=== PATIENT | female | born 1965 | race Caucasian/White ===

== ENCOUNTER → 2020-10-12 | Emergency (ER) | payer BC ==
[~2020-10-12] VITALS: Ht 160 cm; Wt 51.7 kg
== END | disposition left against medical advice (07) ==
LOC: ER 20:17
DX: S61.422A Laceration with foreign body of left hand, initial encounter (principal); W26.0XXA Contact with knife, initial encounter; Y93.89 Activity, other specified; Y92.098 Other place in other non-institutional residence as the place of occurrence of the external cause; Y99.8 Other external cause status